=== PATIENT | male | born 1975 | race Caucasian/White ===

== ENCOUNTER 2018-03-16 05:31 | Inpatient (IN) | payer MEDICARE ==
[2018-03-13 12:09] LABS: BASOPHILS # (AUTO) 0.1 (0.0-0.1); BASOPHILS % 0.5 % (0.0-1.0); EOSINOPHILS # (AUTO) 0.2 (0.0-0.4); EOSINOPHILS % 2.5 % (0.0-6.0); HEMATOCRIT 44.4 % (38.2-49.6); HEMOGLOBIN 15.2 g/dL (14.0-18.0); LYMPHOCYTES # (AUTO) 0.9 (1.0-3.2); LYMPHOCYTES % 9.5 % (18.0-39.1); MEAN CORPUSCULAR HEMOGLOBIN 29.6 pg (28-32); MEAN CORPUSCULAR HGB CONC 34.2 g/dL (31-35); MEAN CORPUSCULAR VOLUME 86.5 fL (81-99); MONOCYTES # (AUTO) 0.5 (0.2-0.8); MONOCYTES % 5.2 % (4.4-11.3); NEUTROPHILS # (AUTO) 7.8 (2.1-6.9); PLATELET COUNT 165 x10e3/uL (140-360); RED BLOOD COUNT 5.13 x10e6/uL (4.3-5.7); RED CELL DISTRIBUTION WIDTH 13.1 % (11.7-14.4)
[2018-03-13 12:42] LABS: ANION GAP 12.8 mmol/L (8-16); BLOOD UREA NITROGEN 6 mg/dL (7-26); BUN/CREATININE RATIO 7 (6-25); CALCIUM 9.4 mg/dL (8.4-10.2); CARBON DIOXIDE 26 mmol/L (22-29); CHLORIDE 102 mmol/L (98-107); CREATININE, SERUM 0.85 mg/dL (0.72-1.25); EST GLOMERULAR FILTRATION RATE > 60 ML/MIN (60-); GLUCOSE 188 mg/dL (74-118); POTASSIUM 3.8 mmol/L (3.5-5.1); SODIUM 137 mmol/L (136-145)
[~2018-03-16] VITALS: Ht 182.9 cm; Wt 145.1 kg
[~2018-03-16 05:31] MED LIST: AMBILIFY PO; ATORVASTATIN CA20 MG PO; LISINOPRIL PO; METFORMIN HCL500 MG PO; METOPROLOL TART25 MG PO; SAXAGLIPTIN PO; SERTRALINE HCL100 MG PO
[2018-03-16] MEDS ORDERED: CEFAZOLIN SOD 2 GM/D5W 50ML 50 ML IV ONE (05:48)
[2018-03-16] MEDS ORDERED: BUPIVACAINE 0.25% 30ML SDV INJ ONE ×2 (06:05→07:29)
[2018-03-16] MEDS ORDERED: BUPIVACAINE 0.5%/EPI 30 ML SDV INJ ONE (06:06)
[2018-03-16] MEDS ORDERED: BUPIVACAINE 0.25%/EPI 30ML SDV INJ ONE (07:29)
[2018-03-16] MEDS ORDERED: ONDANSETRON HCL INJ 2 MG/ML VIAL IV PRN (10:15)
[2018-03-16] MEDS ORDERED: ACETAMINOPHEN 1000 MG/100 ML IV PRN (10:15)
[2018-03-16] MEDS ORDERED: SCOPOLAMINE 1.5 MG PATCH TOP SCH (10:15)
[2018-03-16] MEDS ORDERED: SUGAMMADEX SODIUM 200 MG/2 ML VIAL IV ONE (10:24)
[2018-03-16] MEDS ORDERED: DEXTROSE 50% SYRINGE 50 ML IV PRN (10:30)
[2018-03-16] MEDS ORDERED: FENTANYL CITRATE/PF 100MCG/2 ML INJ ONE ×2 (10:49→16:02)
[2018-03-16] MEDS: INSULIN REGULAR, HUMAN 100 UNIT/1 ML 3ML VIAL SQ SCH ×3 (11:30→21:00)
[2018-03-16] MEDS ORDERED: METOCLOPRAMIDE HCL 10 MG/2ML VIAL ONE (11:39)
[2018-03-16] MEDS ORDERED: HYDROMORPHONE 1MG/1ML INJ ONE (13:02)
--- NOTE | 2018-03-16 13:37 | Operative Report ---
DATE OF PROCEDURE: March 16, 2018 PREOPERATIVE DIAGNOSES 1. Morbid obesity, body mass index 43. 2. Type 2 diabetes mellitus. 3. Hypertension. 4. Dyslipidemia. POSTOPERATIVE DIAGNOSES Morbid obesity, body mass index 43. Type 2 diabetes mellitus. Hypertension. Dyslipidemia. PREOPERATIVE INDICATION: Treat disease, prevent complications related to comorbid conditions of obesity. ANESTHESIA: General. ASSISTANTS: Timur Mancuso surgical aide (needed due to complexity of case). FLUIDS: 1600 mL crystalloid. EBL: 50 mL. DRAINS: None. COMPLICATIONS: None. PROCEDURE PERFORMED: Laparoscopic Marco-en-Y gastric bypass (150 cm antecolic, antegastric Marco limb), CPT code 22932. SPECIMENS: None. GRAFTS: None. FINDINGS 1. Normal upper GI anatomy. 2. Negative intraoperative EGD leak test. PROCEDURAL DETAILS: The patient was brought to the operating room and was intubated under general endotracheal anesthesia. He was positioned supine with both arms abducted and all pressure points appropriately padded. He was sterilely prepped and draped in the usual fashion. A pre-procedural pause was performed identifying the patient, the use of perioperative antibiotics, intended procedure, and the staff surgeon. A primary left subcostal 5 mm incision was made and a Veress needle was inserted to insufflate the abdomen to a pressure of 15 mmHg pressure. A 0 degree, 5 mm Optiview trocar was placed under direct visualization. No injuries were noted. Four additional trocars were placed in the standard positions. The patient was positioned in a steep reverse Trendelenburg position. A liver retractor was placed to expose the proximal stomach. I began the dissection by incising the gastrohepatic ligament using the Harmonic scalpel. The descending branches of the left gastric vessels were ligated using the [place] LigaSure device all the way up to the lesser curvature of the stomach. I then confirmed removal of the orogastric tube after the stomach was desufflated. I then introduced a 60-mm purple load CovActeavo stapler and began forming the gastric pouch by firing the first load across the lesser curvature in a transverse fashion. Multiple other firings were done with the purple load in order to complete a 30 mL gastric pouch. The proximal staple line was oversewn with 2-0 Surgidac suture. I then turned my attention to the small intestine. I measured the biliopancreatic limb 50 cm distal to the ligament of Treitz and divided the bowel there with a caruso load stapler. The mesentery was ligated up to the base using the Harmonic scalpel. I then measured 150 cm of Marco limb and approximated the BP limb in Marco limb with a 2-0 Surgidac suture. Enterotomies were made and a 60 mm caruso load Endo BEENA stapling device was used to create a jejunojejunostomy between the BP limb and the Marco limb. The common enterotomy site was stapled using a caruso load stapler. I then achieved hemostasis with Hemoclips on the staple line. Corner Stitch sutures were placed at the end of an anastomosis using 2-0 Surgidac suture to reduce tension in the anastomosis and then closed mesenteric defect with 2-0 Surgidac suture in a continuous fashion. Hemostasis was assured. I then brought up the Marco limb towards the gastric pouch. Prior to doing this, I split the omentum with the [place] LigaSure device in order to decrease tension on the Marco limb. A posterior layer with 2-0 Surgidac suture between the Marco limb and the posterior gastric pouch was completed. I then made enterotomies in the stomach pouch and the Marco limb and completed a linear stapled anastomosis using single firing of the purple load Endo BEENA stapler measured at about 2 cm intraluminally. The enterotomy site was oversewn with 2-0 Polysorb suture beginning at either end of the anastomosis and tying this in the middle over an adult size endoscope, which was inserted, used as a bougie to prevent narrowing of the anastomosis. Once this was complete, I then oversewed the anastomosis in an imbricating fashion using 2-0 Surgidac suture anteriorly. I then conducted an intraoperative leak test by submerging the anastomosis under saline and insufflating intraluminally, no bubbles were identified and intraluminally the anastomosis appeared patent without any intraluminal hemorrhage. I then desufflated intraluminally with the endoscope and removed the endoscope. I then used several mL of Evicel solution over the anastomosis for further hemostasis. There was some bleeding at the gastric remnant staple line, which was controlled with the Hemoclips. I then closed Zurita's defect in a continuous fashion using 2-0 Surgidac suture. Again, I checked for hemostasis prior to desufflating the abdomen and then removing the trocars. The liver retractor was also removed under direct visualization. The incision sites were closed with 4-0 Monocryl suture in a subcuticular fashion. Dermabond dressings were applied. I used a total of 30 mL of 0.25% bupivacaine in both the preperitoneal and incision sites. The patient tolerated the procedure well. TYPE OF WOUND: Type 2, clean/contaminated. Job#: [id number] PUN
[2018-03-16 15:00] VITALS: BP 123/68
[2018-03-16] MEDS ORDERED: ONGLYZA5 MG PO (15:34)
[2018-03-16] MEDS ORDERED: LISINOPRIL2.5 MG PO (15:34)
[2018-03-16] MEDS ORDERED: ABILIFY5 MG PO (15:34)
[2018-03-16] MEDS ORDERED: TAMSULOSIN HCL0.4 MG PO (15:34)
[2018-03-16] MEDS ORDERED: GLIPIZIDE10 MG PO (15:34)
[2018-03-16] MEDS ORDERED: SERTRALINE HCL100 MG PO (15:36)
[2018-03-16] MEDS ORDERED: MULTI-VITAMIN1 EACH PO (15:36)
[2018-03-16 15:46] VITALS: BP 123/68
[2018-03-16] MEDS ORDERED: MIDAZOLAM HCL 2 MG/2 ML VIAL ONE (16:02)
[2018-03-16] MEDS ORDERED: KETAMINE HCL INJ 50 MG/ML 10 ML VIAL ONE (16:02)
[2018-03-16] MEDS: GLIPIZIDE 5 MG TAB PO SCH (16:30)
--- NOTE | 2018-03-16 16:42 | Consultation ---
DATE OF CONSULTATION: March 16, 2018 INTERNAL MEDICINE CONSULTATION REASON FOR CONSULTATION: Medical management. HISTORY OF PRESENT ILLNESS: This is a 42-year-old white man who underwent successful laparoscopic Marco-en-Y gastric bypass earlier today. Surgery was performed by his bariatric surgeon, namely Gallo Reyes. The patient tolerated this procedure quite well. Patient currently is voicing no complaints. REVIEW OF SYSTEMS GENERAL: No fever or chills. No malaise. Patient states his weight has been stable lately. HEENT: No headaches. No visual changes. CARDIOVASCULAR/RESPIRATORY: No chest pain, no shortness of breath, no cough. He does have a history of sleep apnea. GI: States the abdominal pain is well controlled at this time. : Has no BPH or UTI symptoms. NEUROMUSCULAR: No limb weakness or numbness. PAST MEDICAL HISTORY 1. PTSD. 2. Depression. 3. Extreme obesity, BMI of 42. 4. Hypertensive heart disease. 5. Type 2 diabetes mellitus. 6. Dyslipidemia. FAMILY HISTORY: Multiple family members with hypertension. SOCIAL HISTORY: This gentleman is . He lives at home with his 2 college-age children. Denies history of tobacco or alcohol use. He is retired . ALLERGIES: NO KNOWN DRUG ALLERGIES. SURGICAL HISTORY: Laparoscopic Marco-en-Y gastric bypass today. No previous surgical history. HOME MEDICATIONS 1. Saxagliptin 5 mg daily. 2. Glipizide 20 mg b.i.d. 3. Abilify 2.5 mg daily. 4. Sertraline 200 mg nightly. 5. Tamsulosin 0.4 mg nightly. 6. Multivitamin once daily. 7. Lisinopril 2.5 mg daily. 8. Atorvastatin 20 mg nightly. 9. Metformin 1000 mg b.i.d. 10. Metoprolol tartrate 25 mg daily. PHYSICAL EXAMINATION GENERAL: He is awake, alert and fully oriented, in no respiratory distress, very pleasant and cooperative with exam. VITAL SIGNS: Height 6 feet 0 inches, weight is 316 pounds, BMI 42. Blood pressure is 124/68, pulse 74, respiratory rate 16, temperature 97.8. INTEGUMENT: Skin is warm and dry. No pallor, jaundice, diaphoresis. HEENT: Anicteric sclerae with moist mucous membranes. NECK: Supple. CARDIOVASCULAR: Regular rate and rhythm. Patient has distant heart sounds. LUNGS: No rales, no rhonchi, no wheezes. ABDOMEN: Obese. EXTREMITIES: The patient has sequential compression devices in place in the bilateral lower legs. NEUROLOGICALLY: Intact. Patient moves all 4 extremities freely. No focal deficits appreciated. DIAGNOSES 1. Status post laparoscopic Marco-en-Y gastric bypass. 2. Type 2 diabetes mellitus. 3. Extreme obesity, body mass index of 42. 4. Hypertensive heart disease. 5. Sleep apnea. PLAN 1. Follow hemoglobin and hematocrit. 2. Follow hepatic transaminases. 3. Follow glucose levels. 4. Resume home medications. 5. Recommend that patient use the incentive spirometer every hour (10 inspirations). 6. Continue enoxaparin b.i.d. for deep venous thrombosis prophylaxis. I spent 40 minutes in the care of the patient. I would like to thank Dr. Reyes for this generous consult. Job#: [id number] ANUSHA
[2018-03-16] MEDS: METFORMIN HCL 500 MG TAB PO SCH (16:56)
[2018-03-16] MEDS: MORPHINE SULFATE 2 MG/ML SYR IV PRN ×2 (17:01→20:12)
[2018-03-16 17:13] VITALS: BP 135/69
[2018-03-16 18:38] VITALS: BP 135/69
[2018-03-16] MEDS ORDERED: EPHEDRINE SULFATE INJ 50 MG/10 ML SYR ONE (19:58)
[2018-03-16] MEDS ORDERED: LIDOCAINE HCL 2% LOCAL INJ 5 ML SDV VIAL INJ ONE (19:58)
[2018-03-16] MEDS ORDERED: SEVOFLURANE INHAL SOLN 250 ML PEN BTL ONE (19:58)
[2018-03-16] MEDS ORDERED: ONDANSETRON HCL INJ 2 MG/ML VIAL ONE (19:58)
[2018-03-16] MEDS ORDERED: ROCURONIUM BROMIDE 10 MG/ML 5ML VIAL ONE (19:58)
[2018-03-16] MEDS ORDERED: PROPOFOL IV EMULSION 10 MG/ML 20 ML VIAL ONE (19:58)
[2018-03-16] MEDS ORDERED: LIDOCAINE HCL 2% JELLY 5 ML TUBE ONE (19:58)
[2018-03-16] MEDS ORDERED: ACETAMINOPHEN 1000 MG/100 ML IV ONE (19:58)
[2018-03-16 20:00] VITALS: BP 141/76
[2018-03-16] MEDS ORDERED: ENOXAPARIN SOD INJ 40 MG/0.4 ML SYR SC SCH (20:00)
[2018-03-16 20:05] VITALS: BP 141/76
[2018-03-16] MEDS: ENOXAPARIN SOD INJ 40 MG/0.4 ML SYR SC SCH (20:49)
[2018-03-16] MEDS ORDERED: TAMSULOSIN HCL 0.4 MG CAP PO SCH (21:00)
[2018-03-16] MEDS ORDERED: ATORVASTATIN 20 MG TAB PO SCH (21:00)
[2018-03-16] MEDS ORDERED: SERTRALINE HCL 100 MG TAB PO SCH ×2 (21:00)
[2018-03-17] VITALS: BP 149/79
[2018-03-17] MEDS: LACTATED RINGER'S 1,000 ML IV SCH ×2 (02:25→11:33)
[2018-03-17] MEDS: MORPHINE SULFATE 2 MG/ML SYR IV PRN ×2 (02:31)
[2018-03-17 05:38] LABS: BASOPHILS % 0.2 % (0.0-1.0); EOSINOPHILS % 0.2 % (0.0-6.0); HEMATOCRIT 38.1 % (38.2-49.6); LYMPHOCYTES # (AUTO) 1.4 (1.0-3.2); LYMPHOCYTES % 14.6 % (18.0-39.1); MEAN CORPUSCULAR HEMOGLOBIN 29.6 pg (28-32); MEAN CORPUSCULAR HGB CONC 33.9 g/dL (31-35); MEAN CORPUSCULAR VOLUME 87.4 fL (81-99); MONOCYTES # (AUTO) 0.8 (0.2-0.8); MONOCYTES % 8.2 % (4.4-11.3); NEUTROPHILS % 76.4 % (38.7-80.0); PLATELET COUNT 160 x10e3/uL (140-360); RED BLOOD COUNT 4.36 x10e6/uL (4.3-5.7); RED CELL DISTRIBUTION WIDTH 13.1 % (11.7-14.4)
[2018-03-17 06:00] VITALS: BP 153/80
[2018-03-17 06:05] LABS: HEMOGLOBIN 12.9 g/dL (14.0-18.0)
[2018-03-17 06:10] LABS: ALANINE AMINOTRANSFERASE 64 IU/L (0-55); ALBUMIN 3.6 g/dL (3.5-5.0); ALBUMIN/GLOBULIN RATIO 1.4 (0.8-2.0); ALKALINE PHOSPHATASE 45 IU/L (40-150); ANION GAP 14.7 mmol/L (8-16); BLOOD UREA NITROGEN 8 mg/dL (7-26); BUN/CREATININE RATIO 9 (6-25); CARBON DIOXIDE 24 mmol/L (22-29); CHLORIDE 104 mmol/L (98-107); CREATININE, SERUM 0.85 mg/dL (0.72-1.25); EST GLOMERULAR FILTRATION RATE > 60 ML/MIN (60-); GLUCOSE 154 mg/dL (74-118); POTASSIUM 3.7 mmol/L (3.5-5.1); SODIUM 139 mmol/L (136-145)
[2018-03-17] MEDS: INSULIN REGULAR, HUMAN 100 UNIT/1 ML 3ML VIAL SQ SCH ×2 (07:30→11:30)
[2018-03-17 08:00] VITALS: BP 164/80
[2018-03-17] MEDS: METFORMIN HCL 500 MG TAB PO SCH (08:00)
[2018-03-17] MEDS: GLIPIZIDE 5 MG TAB PO SCH (08:31)
[2018-03-17] MEDS: ENOXAPARIN SOD INJ 40 MG/0.4 ML SYR SC SCH (08:33)
[2018-03-17] MEDS ORDERED: METOPROLOL TARTRATE 25 MG TAB PO SCH (09:00)
[2018-03-17] MEDS ORDERED: ARIPIPRAZOLE 5 MG TABLET PO SCH (09:00)
[2018-03-17] MEDS ORDERED: MULTIVITAMINS/MINERALS TAB PO SCH (09:00)
[2018-03-17] MEDS ORDERED: LISINOPRIL 2.5 MG TAB PO SCH (09:00)
[2018-03-17] MEDS ORDERED: HYDROCODONE/APAP 7.5MG-325MG 1 EA TAB PO PRN (09:15)
[2018-03-17 11:40] VITALS: BP 164/80
[2018-03-17 13:49] VITALS: BP 167/89
== END 2018-03-17 14:03 | disposition home or self-care (01) | DRG 621 ==
LOC: OR 05:31 → PACU V 10:19 → MED/SURG 14:11
PROVIDERS: ADMIT Surgery; ATTEND Surgery
PROC: 0D164ZA Bypass Stomach to Jejunum, Percutaneous Endoscopic Approach (ICD-10-PCS; principal; 2018-03-16 07:30)
DX: E66.01 Morbid (severe) obesity due to excess calories (principal); Z68.41 Body mass index [BMI] 40.0-44.9, adult; E11.9 Type 2 diabetes mellitus without complications; E78.5 Hyperlipidemia, unspecified; F32.9 Major depressive disorder, single episode, unspecified; I11.0 Hypertensive heart disease with heart failure; I50.9 Heart failure, unspecified; G47.30 Sleep apnea, unspecified; Z79.4 Long term (current) use of insulin; Z79.899 Other long term (current) drug therapy; G47.33 Obstructive sleep apnea (adult) (pediatric); K76.0 Fatty (change of) liver, not elsewhere classified
CPT/HCPCS: 36415; 43235; 80048; 80053; 82948; 83735; 84100; 85025; 86850; 86900; J1170; J1650; J2001; J2250; J2270; J2405; J2765; J7120